=== PATIENT | female | born 1990 | race Hispanic/Latino ===

== ENCOUNTER 2018-05-19 20:33 | Emergency (ER) | payer MEDICAID ==
[2018-05-19 20:48] VITALS: BMI 33.3
--- NOTE | 2018-05-19 21:16 | ED PDOC ---
Arrival/HPI - General Chief Complaint: Finger,Hand,&Wrist Time Seen by Provider: 05/19/18 21:12 Historian: Patient - History of Present Illness Narrative History of Present Illness (Text): 05/19/18 21:12 27 y/o female, no significant pmh, nkda, c/o rt. hand middle finger pain and swelling x 3 days. Aching pain, aggravated by touching, no difficulty bending or extending the finger or hand, no fever or chills, no headache or night sweat , no dizziness, no other medical or psychological complaints. Past Medical History - Provider Review Nursing Documentation Reviewed: Yes - Psychiatric Hx Psychophysiologic Disorder: No Hx Substance Use: No - Surgical History Hx Section: Yes - Anesthesia Hx Anesthesia: No Family/Social History - Physician Review Nursing Documentation Reviewed: Yes Family/Social History: Unknown Family HX Smoking Status: Never Smoked Hx Alcohol Use: No Hx Substance Use: No Allergies/Home Meds Allergies/Adverse Reactions: Allergies avocado Allergy (Verified 05/19/18 20:46) RASH Review of Systems - Review of Systems Constitutional: absent: Fatigue, Fevers Eyes: absent: Vision Changes ENT: absent: Hearing Changes Respiratory: absent: SOB, Cough Cardiovascular: absent: Chest Pain Gastrointestinal: absent: Abdominal Pain, Nausea, Vomiting Musculoskeletal: absent: Arthralgias, Back Pain Skin: Skin Lesions. absent: Rash, Pruritis Neurological: absent: Headache, Dizziness Psychiatric: absent: Anxiety, Depression, Suicidal Ideation Physical Exam - Systems Exam Head: Present: Atraumatic, Normocephalic Pupils: Present: PERRL Extroacular Muscles: Present: EOMI Conjunctiva: Present: Normal Mouth: Present: Moist Mucous Membranes Neck: Present: Normal Range of Motion Respiratory/Chest: Present: Clear to Auscultation, Good Air Exchange. No: Respiratory Distress, Accessory Muscle Use Cardiovascular: Present: Regular Rate and Rhythm, Normal S1, S2. No: Murmurs Abdomen: No: Tenderness, Distention, Peritoneal Signs Back: Present: Normal Inspection Upper Extremity: Present: Normal Inspection, Other (Rt. hand 3rd digit middle finger: visible paronychia noted on the lateral of the nail bed with mild erythematous, no streaking, no ulcers, negative kanavel sign, FROM without limitation, sensation intact, motor 5/5, neurovascular intact. ). No: Cyanosis , Edema Lower Extremity: Present: Normal Inspection. No: Edema Neurological: Present: GCS=15, CN II-XII Intact, Speech Normal Skin: Present: Warm, Dry, Normal Color. No: Rashes Psychiatric: Present: Alert, Oriented x 3, Normal Insight, Normal Concentration Medical Decision Making ED Course and Treatment: 05/19/18 21:21 -urine hcg -clindamycin/motrin -will I&D 05/19/18 21:24 -Urine hcg is negative PROCEDURE: PARONYCHIA I & D Performed by the emergency provider Indication: Paronychia Location: rt. hand 3rd digit Preparation: clean with saline 200cc, clean with betadine, sterile procedure, rt. hand 3rd digit digital block by me with 1% lidocaine 2cc, Procedure: The most fluctuant portion was incised with a #11 scalpel, incision size 0.5cm, approx. 0.5cc of abscess released, swelling resolved, gauze dressing , tape. Post-Procedure: On exam the paronychia resolved except mild erythematous. The patient tolerated the procedure well, and there were no complications. total procedure is 15 minutes. Broad spectum clindamycin coverage 05/19/18 22:20 -Discharge home with clindamycin, motrin, keep the dressing dry and clean for 2 days, follow up with your own pmd and hand specialist within 2 days, return to the ER for an y new or worsening signs or symptoms. - Medication Orders Current Medication Orders: Discontinued Medications Clindamycin HCl (Cleocin) 300 mg PO STAT STA PRN Reason: Protocol Stop: 05/19/18 21:23 Ibuprofen (Motrin Tab) 600 mg PO STAT STA Stop: 05/19/18 21:23 Lidocaine HCl (Lidocaine 1% (20ml)) 2 ml IJ STAT STA Stop: 05/19/18 21:23 - PA / LANDFILL ATTENDANT / Resident Statement MD/DO has reviewed & agrees with the documentation as recorded. Disposition/Present on Arrival - Present on Arrival Any Indicators Present on Arrival: No History of DVT/PE: No History of Uncontrolled Diabetes: No Urinary Catheter: No History of Decub. Ulcer: No History Surgical Site Infection Following: None - Disposition Have Diagnosis and Disposition been Completed?: Yes Diagnosis: Paronychia Disposition: HOME/ ROUTINE Disposition Time: 21:22 Patient Plan: Discharge Patient Problems: Current Active Problems Problem Status Onset Paronychia Acute Condition: IMPROVED Additional Instructions: Discharge home with clindamycin, motrin, keep the dressing dry and clean for 2 days, follow up with your own pmd and hand specialist within 2 days, return to the ER for an y new or worsening signs or symptoms. Prescriptions: Clindamycin [Cleocin] 300 mg PO TID #24 cap Ibuprofen [Motrin Tab] 600 mg PO QID PRN #30 tab PRN Reason: Other Referrals: Gaby Art, [Primary Care Provider] - Follow up with primary Talat Calderón MD [Staff Provider] - Follow up with primary [facility] [Outside] - Follow up with primary Forms: [employer] (I[place]ic), WORK NOTE
[2018-05-19] MEDS ORDERED: Lidocaine 1% Inj (20ml) IJ STA (21:22)
[2018-05-19 22:32] VITALS: BP 130/76; PULSE 76; RESP 18; TEMP 98.3; O2SAT 99
== END 2018-05-19 22:34 | disposition home or self-care (01) ==
LOC: ED 20:33
DX: L03.011 Cellulitis of right finger (principal)